=== PATIENT | female | born 1965 | race Caucasian/White ===

== ENCOUNTER 2017-03-21 19:09 | Observation (INO) | payer OTHER ==
[~2017-03-21] VITALS: Ht 165.1 cm; Wt 73.0 kg
[2017-03-21 19:12] VITALS: BP 178/82; PULSE 71; RESP 16; TEMP 98.3; O2SAT 99
[2017-03-21] MEDS ORDERED: LIPI10TA PO (19:29)
[2017-03-21] MEDS ORDERED: OMEP2.5S (19:29)
[2017-03-21] MEDS ORDERED: LOSA25TA PO (19:29)
--- NOTE | 2017-03-21 19:40 | PD ---
HPI Chief Complaint: Chest Pain Time Seen by Provider: 19:20 Travel History International Travel<30 days: No Contact w/Intl Traveler<30days: No Traveled to known affect area: No History of Present Illness HPI Patient is a 51-year-old female today while cooking her lunch she suddenly developed substernal chest pain that was bilateral central right as well as left it's been constant she took Maalox and Tums to relieve Prilosec to relieve but it did not relieve her pain. The pain continues in the ER. It is been constant for the last 3 hours. She has no nausea no vomiting no diaphoresis. The pain is a burning pressures kind of feeling. She has not seen Another doctor for this pain. In the ER she is nondiaphoretic nontoxic nonseptic appearing main complaint is a substernal midline chest pain burning pressure without relief from the meds she tried at home. She has a history of hypertension for which she takes losartan no other medications. No medical allergies PFSH Past Medical History High Cholesterol: Yes Diminished Hearing: No GERD: Yes Hypertension: Yes ?: Not Past Surgical History Abdominal Surgery: Yes (FISSURES) Eye Surgery: Yes (BILAT CATARACT SX) Social History Alcohol Use: No Tobacco Use: No Substance Use: No Allergies-Medications (Allergen,Severity, Reaction): Coded Allergies: No Known Allergies (Unverified , 03/21/17) Reported Meds & Prescriptions Reported Meds & Active Scripts Active Reported Prilosec (Omeprazole Magnesium) 2.5 Mg Pow Losartan (Losartan Potassium) 25 Mg Tab 25 Mg PO DAILY Lipitor (Atorvastatin Calcium) 10 Mg Tab 10 Mg PO HS Review of Systems Except as stated in HPI: all other systems reviewed are Neg Cardiovascular: Positive: Chest Pain or Discomfort Physical Exam Narrative GENERAL: no distress non toxic appearance SKIN: Warm and dry. HEAD: Atraumatic. Normocephalic. EYES: Pupils equal and round. No scleral icterus. No injection or drainage. ENT: No nasal bleeding or discharge. Mucous membranes pink and moist. NECK: Trachea midline. No JVD. CARDIOVASCULAR: Regular rate and rhythm. RESPIRATORY: No accessory muscle use. Clear to auscultation. Breath sounds equal bilaterally. GASTROINTESTINAL: Abdomen soft, non-tender, nondistended. Hepatic and splenic margins not palpable. MUSCULOSKELETAL: Extremities without clubbing, cyanosis, or edema. No obvious deformities. NEUROLOGICAL: Awake and alert. No obvious cranial nerve deficits. Motor grossly within normal limits. Five out of 5 muscle strength in the arms and legs. Normal speech. PSYCHIATRIC: Appropriate mood and affect; insight and judgment normal. Data Data Last Documented VS Orders Orders Complete Blood Count With Diff (03/21/17 19:26) Comprehensive Metabolic Panel (03/21/17 19:26) Ckmb (Isoenzyme) Profile (03/21/17 19:26) Troponin I (03/21/17:) Lipase (03/21/17:) Urinalysis - C+S If Indicated (03/21/17 19:26) Chest, Single Ap (03/21/17:26) Pantoprazole Inj (Protonix Inj) (03/21/17 19:45) Al-Mag Hy-Si 40-40-4 Mg/Ml Liq (Mag-Al P (03/21/17 19:45) Lidocaine 2% Viscous (Xylocaine 2% Visco (03/21/17 19:45) Electrocardiogram (03/21/17 ) CKMB (03/21/17 19:30) CKMB% (03/21/17 19:30) Admit Order (Ed Use Only) (03/21/17 22:07) Labs Laboratory Tests Test 03/21/17 19:30 03/21/17 20:05 White Blood Count 9.6 TH/MM3 Red Blood Count 4.67 MIL/MM3 Hemoglobin 14.0 GM/DL Hematocrit 42.5 % Mean Corpuscular Volume 91.0 FL Mean Corpuscular Hemoglobin 30.0 PG Mean Corpuscular Hemoglobin Concent 33.0 % Red Cell Distribution Width 13.6 % Platelet Count 191 TH/MM3 Mean Platelet Volume 10.2 FL Neutrophils (%) (Auto) 64.6 % Lymphocytes (%) (Auto) 25.0 % Monocytes (%) (Auto) 8.8 % Eosinophils (%) (Auto) 1.2 % Basophils (%) (Auto) 0.4 % Neutrophils # (Auto) 6.2 TH/MM3 Lymphocytes # (Auto) 2.4 TH/MM3 Monocytes # (Auto) 0.8 TH/MM3 Eosinophils # (Auto) 0.1 TH/MM3 Basophils # (Auto) 0.0 TH/MM3 CBC Comment DIFF FINAL Differential Comment Blood Urea Nitrogen 18 MG/DL Creatinine 0.82 MG/DL Random Glucose 87 MG/DL Total Protein 7.4 GM/DL Albumin 3.8 GM/DL Calcium Level 8.9 MG/DL Alkaline Phosphatase 75 U/L Aspartate Amino Transf (AST/SGOT) 20 U/L Alanine Aminotransferase (ALT/SGPT) 24 U/L Total Bilirubin 0.2 MG/DL Sodium Level 137 MEQ/L Potassium Level 3.7 MEQ/L Chloride Level 101 MEQ/L Carbon Dioxide Level 26.0 MEQ/L Anion Gap 10 MEQ/L Estimat Glomerular Filtration Rate 73 ML/MIN Total Creatine Kinase 216 U/L Creatine Kinase MB 1.0 NG/ML Creatine Kinase MB % 0.5 % Troponin I LESS THAN 0.02 NG/ML Lipase 89 U/L Urine Color LIGHT-YELLOW Urine Turbidity CLEAR Urine pH 6.0 Urine Specific [place] 1.003 Urine Protein NEG mg/dL Urine Glucose (UA) NEG mg/dL Urine Ketones NEG mg/dL Urine Occult Blood NEG Urine Nitrite NEG Urine Bilirubin NEG Urine Urobilinogen LESS THAN 2.0 MG/DL Urine Leukocyte Esterase NEG Urine WBC LESS THAN 1 /hpf Urine Squamous Epithelial Cells 3 /hpf Microscopic Urinalysis Comment CULT NOT INDICATED MDM Medical Decision Making Medical Screen Exam Complete: Yes Emergency Medical Condition: Yes Differential Diagnosis Gastritis versus GERD versus pancreatitis versus gallbladder disease versus myocardial ischemia pain versus lung pain and other. Narrative Course needs rule out of ACS with serial trop and stress test to R/O MA first ekg and trop neg and admit observation Diagnosis Primary Impression: Chest pain Qualified Codes: R07.9 - Chest pain, unspecified Admitting Information Admitting Physician Requests: Observation Condition: Corey Mckenzie MD Mar 21, 2017 19:40
[2017-03-21] MEDS ORDERED: LIDOCAINE VISCOUS 2% SOLN 15 ML UDC SWISH-SWAL ONE (19:45)
[2017-03-21] MEDS ORDERED: ALUMINUM/MAGNESIUM/SIMETH 30 ML CUP PO ONE (19:45)
[2017-03-21] MEDS ORDERED: PANTOPRAZOLE SODIUM 40 MG VIAL IV PUSH ONE (19:45)
[2017-03-21 20:15] LABS: AUTOMATED NEUTROPHIL # 6.2 TH/MM3 (1.8-7.7); BASOPHIL % 0.4 % (0.0-2.0); EOSINOPHIL # 0.1 TH/MM3 (0-0.4); EOSINOPHIL % 1.2 % (0.0-4.0); HEMATOCRIT 42.5 % (35.0-46.0); HEMO FLAGS DIFF FINAL; LYMPHOCYTE # 2.4 TH/MM3 (1.0-4.8); MONO % 8.8 % (0.0-8.0); NEUT % 64.6 % (16.0-70.0); PLATELET COUNT 191 TH/MM3 (150-450); RED BLOOD COUNT 4.67 MIL/MM3 (4.00-5.30); RED CELL DISTRIBUTION WIDTH 13.6 % (11.6-17.2); WHITE BLOOD COUNT 9.6 TH/MM3 (4.0-11.0)
[2017-03-21 20:16] VITALS: BP 150/82; PULSE 77; RESP 18; O2SAT 99
[2017-03-21 20:18] LABS: BLOOD, URINE NEG (NEG); GLUCOSE,URINE NEG (NEG); KETONE, URINE NEG (NEG); NITRITE,URINE NEG (NEG); SQUAMOUS EPITHELIAL CELL URINE 3 /hpf (0-5); URINE COLOR LIGHT-YELLOW (YELLW/STRAW)
--- NOTE | 2017-03-21 20:25 | RADRPT ---
EXAM DATE/TIME: 03/21/2017 20:09 [place] COMPARISON: No previous studies available for comparison. INDICATIONS : Left side chest pain. MEDICAL HISTORY : None. SURGICAL HISTORY : None. ENCOUNTER: Initial ACUITY: 1 day PAIN SCORE: 4/10 LOCATION: Left chest FINDINGS: A single view of the chest demonstrates the lungs to be symmetrically aerated without evidence of mas s, infiltrate or effusion. The cardiomediastinal contours are unremarkable. Osseous structures are intact. CONCLUSION: No acute disease. Colten Guan MD on March 21, 2017 at 20:23 Board Certified Radiologist. This report was verified electronically.
[2017-03-21 20:30] LABS: COMMENT (UR) CULT NOT INDICATED; CULTURE IF INDICATED CULT NOT INDICATED
[2017-03-21 20:43] LABS: ANION GAP 10 MEQ/L (5-15); AST (GOT) 20 U/L (15-37); BLOOD UREA NITROGEN 18 MG/DL (7-18); CHLORIDE 101 MEQ/L (98-107); GLOMERULAR FILTRATION RATE 73 ML/MIN (>89); POTASSIUM 3.7 MEQ/L (3.5-5.1); SODIUM (NA) 137 MEQ/L (136-145)
[2017-03-21 20:44] LABS: ALT (GPT) 24 U/L (10-53)
[2017-03-21 20:48] LABS: ALKALINE PHOSPHATASE 75 U/L (45-117); CREATINE KINASE 216 U/L (26-192); TOTAL BILIRUBIN ADULT 0.2 MG/DL (0.2-1.0)
[2017-03-21] MEDS ORDERED: SODIUM CHLORIDE 0.9% FLUSH 10 ML FLUSH IV FLUSH PRN (22:15)
[2017-03-21] MEDS ORDERED: ONDANSETRON HCL 4 MG/2 ML VIAL IV PUSH PRN (22:15)
[2017-03-21] MEDS ORDERED: NITROGLYCERIN 2% OINT 1 GM PACKET TOPICAL ONE (22:30)
[2017-03-21] MEDS ORDERED: ASPIRIN 81 MG CHEW TAB CHEW ONE (22:30)
[2017-03-21 23:22] VITALS: BP 123/84; PULSE 77; RESP 17; TEMP 97.8; O2SAT 98
[2017-03-21 23:31] LABS: CREATINE KINASE 190 U/L (26-192)
[2017-03-21 23:33] VITALS: PULSE 77
[2017-03-21 23:44] LABS: CKMB 1.1 NG/ML (0.5-3.6)
[2017-03-22 02:34] LABS: CREATINE KINASE 166 U/L (26-192)
[2017-03-22 02:47] LABS: CKMB 1.1 NG/ML (0.5-3.6)
[2017-03-22] MEDS: NITROGLYCERIN 2% OINT 1 GM PACKET TOP SCH ×2 (03:26→06:00)
[2017-03-22 04:05] VITALS: PULSE 74
[2017-03-22 04:34] VITALS: BP 109/74; PULSE 72; RESP 16; TEMP 97.8; O2SAT 96
[2017-03-22 07:10] VITALS: PULSE 73
[2017-03-22 08:02] VITALS: BP 117/83; PULSE 85; RESP 18; TEMP 98.1; O2SAT 97
--- NOTE | 2017-03-22 08:50 | HHI.HP ---
[facility] Primary Care Physician Ildefonso Mccormick D.O. Chief Complaint CHEST PAIN History of Present Illness This is a 81-year-old female that presents to ED for evaluation of chest discomfort. She states it began yesterday around 6:00 in the morning while preparing her 's lunch. States symptoms lasted all day long. 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 Tried taking Maalox and Tums and Prilosec but did not really help. She tried drinking a soda thinking it may help her burp and the symptoms would improve however they did not. He describes as a tightness. Points to the center of her chest. Femoral nothing to improve the symptoms were to worsen them. No shortness of breath, nausea, or diaphoresis. She's had similar episode a couple months ago but they last for just a couple seconds. Denies recent illness. Denies fevers or chills. Review of Systems General: Patient denies fevers, chills recent, and recent travel HEENT: Patient denies headache, sore throat, difficulty swallowing. Cardiovascular: Has the chest discomfort as mentioned above. Denies sensation of heart beating rapidly or irregularly. No syncope. Denies diaphoresis. Respiratory: Denies shortness of breath or inspirational chest discomfort. Denies coughing wheezing or hemoptysis. GI: Patient denies nausea, vomiting, diarrhea, abdominal pain, bloody stools. Musculoskeletal: Patient denies joint pain or edema. Denies calf pain or edema. Neurovascular: Patient denies numbness, tingling, weakness in extremities. Denies headache. Endocrine: Denies polyuria and polydipsia. Hematologic: Denies easy bruising. Skin: Denies rash or itching. Past Family Social History Allergies: Coded Allergies: No Known Allergies (Unverified , 03/21/17) Past Medical History Hypertension, hyperlipidemia, GERD. Denies diabetes and known CAD. Past Surgical History Noncontributory. Reported Medications Reported Meds & Active Scripts Active Reported Prilosec (Omeprazole Magnesium) 2.5 Mg Pow Losartan (Losartan Potassium) 25 Mg Tab 25 Mg PO DAILY Lipitor (Atorvastatin Calcium) 10 Mg Tab 10 Mg PO HS Active Ordered Medications Current Medications Medications (Trade) Dose Ordered Sig/Tab Route Start Time Stop Time Status Last Admin (NS Flush) 2 ml UNSCH PRN IV FLUSH 03/21/17 22:15 (NS Flush) 2 ml BID IV FLUSH 03/22/17 09:00 (Zofran Inj) 4 mg Q6H PRN IV PUSH 03/21/17 22:15 (Pepcid) 20 mg BID PO 03/22/17 09:00 (Nitroglycerin 2% Oint) 1 inch Q6HR TOP 03/22/17 00:00 03/22/17 03:26 Family History States her father had a CABG in his early 60s. Social History Nonsmoker. Denies alcohol or illicit drugs. Physical Exam Vital Signs Vital Signs Date Time Temp Pulse Resp B/P (MAP) Pulse Ox O2 Delivery O2 Flow Rate FiO2 03/22/17 08:02 98.1 85 18 117/83 (94) 97 03/22/17 07:10 73 03/22/17 04:34 97.8 72 16 109/74 (86) 96 03/22/17 04:05 74 03/21/17 23:33 77 03/21/17 23:22 97.8 77 17 123/84 (97) 98 03/21/17 23:03 03/21/17 20:16 77 18 150/82 (104) 99 Room Air 03/21/17 19:22 100 Room Air 03/21/17 19:12 98.3 71 16 178/82 (114) 99 Room Air Physical Exam GENERAL: This is a well-nourished, well-developed patient, in no apparent distress. Patient speaks in clear complete sentences. Patient is pleasant. HEENT: Head is atraumatic and normocephalic. Neck is supple without lymphadenopathy and trachea is midline. No JVD or carotid bruits. CARDIOVASCULAR: Regular rate and rhythm without murmurs, gallops, or rubs. RESPIRATORY: Clear to auscultation. Breath sounds equal bilaterally. No wheezes , rales, or rhonchi. Chest wall is nontender. No use of accessory muscles. GASTROINTESTINAL: Abdomen is nontender, nondistended. Abdomen soft. No obvious pulsatile mass or bruit. No CVA tenderness. Strong femoral pulses bilaterally. Normal bowel sounds in all quadrants. MUSCULOSKELETAL: Patient is moving upper and lower extremities freely. No calf tenderness or edema, no Homans sign. Strong pulses in upper and lower extremities. NEUROLOGICAL: Patient is alert and oriented. Cranial nerves 2-12 are grossly intact. No focal deficits and speech is clear. SKIN: No rash and turgor is normal. Laboratory Laboratory Tests Test 03/21/17 19:30 03/21/17 20:05 03/21/17 23:00 03/22/17 01:50 White Blood Count 9.6 Red Blood Count 4.67 Hemoglobin 14.0 Hematocrit 42.5 Mean Corpuscular Volume 91.0 Mean Corpuscular Hemoglobin 30.0 Mean Corpuscular Hemoglobin Concent 33.0 Red Cell Distribution Width 13.6 Platelet Count 191 Mean Platelet Volume 10.2 Neutrophils (%) (Auto) 64.6 Lymphocytes (%) (Auto) 25.0 Monocytes (%) (Auto) 8.8 Eosinophils (%) (Auto) 1.2 Basophils (%) (Auto) 0.4 Neutrophils # (Auto) 6.2 Lymphocytes # (Auto) 2.4 Monocytes # (Auto) 0.8 Eosinophils # (Auto) 0.1 Basophils # (Auto) 0.0 CBC Comment DIFF FINAL Differential Comment Blood Urea Nitrogen 18 Creatinine 0.82 Random Glucose 87 Total Protein 7.4 Albumin 3.8 Calcium Level 8.9 Alkaline Phosphatase 75 Aspartate Amino Transf (AST/SGOT) 20 Alanine Aminotransferase (ALT/SGPT) 24 Total Bilirubin 0.2 Sodium Level 137 Potassium Level 3.7 Chloride Level 101 Carbon Dioxide Level 26.0 Anion Gap 10 Estimat Glomerular Filtration Rate 73 Total Creatine Kinase 216 190 166 Creatine Kinase MB 1.0 1.1 1.1 Creatine Kinase MB % 0.5 Troponin I LESS THAN 0.02 LESS THAN 0.02 LESS THAN 0.02 Lipase 89 Urine Color LIGHT-YELLOW Urine Turbidity CLEAR Urine pH 6.0 Urine Specific [place] 1.003 Urine Protein NEG Urine Glucose (UA) NEG Urine Ketones NEG Urine Occult Blood NEG Urine Nitrite NEG Urine Bilirubin NEG Urine Urobilinogen LESS THAN 2.0 Urine Leukocyte Esterase NEG Urine WBC LESS THAN 1 Urine Squamous Epithelial Cells 3 Microscopic Urinalysis Comment CULT NOT INDICATED Result Diagram: 03/21/17192903/21/171929 Imaging Last 48 hours Impressions Chest X-Ray 03/21/171925 Signed Impressions: Service Date/Time: Tuesday, March 21, 2017 20:09 - CONCLUSION: No acute disease. Colten Guan MD Course EKGs have sinus rhythm without significant ST segment depressions or elevations. Caprini VTE Risk Assessment Caprini VTE Risk Assessment: No/Low Risk (score <= 1) Caprini Risk Assessment Model Point Value = 1 Point Value = 2 Point Value = 3 Point Value = 5 Age 41-60 Minor surgery BMI > 25 kg/m2 Swollen legs Varicose veins or History of unexplained or recurrent spontaneous Oral contraceptives or hormone replacement Sepsis (< 1 month) Serious lung disease, including pneumonia (< 1 month) Abnormal pulmonary function Acute myocardial infarction Congestive heart failure (< 1 month) History of inflammatory bowel disease Medical patient at bed rest Age 61-74 Arthroscopic surgery Major open surgery (> 45 min) Laparoscopic surgery (> 45 min) Malignancy Confined to bed (> 72 hours) Immobilizing plaster cast Central venous access Age >= 75 History of VTE Family history of VTE Factor V Leiden Prothrombin [id number] Lupus anticoagulant Anticardiolipin antibodies Elevated serum homocysteine Heparin-induced thrombocytopenia Other congenital or acquired thrombophilia Stroke (< 1 month) Elective arthroplasty Hip, pelvis, or leg fracture Acute spinal cord injury (< 1 month) Prophylaxis Regimen Total Risk Factor Score Risk Level Prophylaxis Regimen 0-1 Low Early ambulation 2 Moderate Order ONE of the following: *Sequential Compression Device (SCD) *Heparin 5000 units SQ BID 3-4 Higher Order ONE of the following medications: *Heparin 5000 units SQ TID *Enoxaparin/Lovenox 40 mg SQ daily (WT < 150 kg, CrCl > 30 mL/min) *Enoxaparin/Lovenox 30 mg SQ daily (WT < 150 kg, CrCl > 10-29 mL/min) *Enoxaparin/Lovenox 30 mg SQ BID (WT < 150 kg, CrCl > 30 mL/min) AND/OR *Sequential Compression Device (SCD) 5 or more Highest Order ONE of the following medications: *Heparin 5000 units SQ TID (Preferred with Epidurals) *Enoxaparin/Lovenox 40 mg SQ daily (WT < 150 kg, CrCl > 30 mL/min) *Enoxaparin/Lovenox 30 mg SQ daily (WT < 150 kg, CrCl > 10-29 mL/min) *Enoxaparin/Lovenox 30 mg SQ BID (WT < 150 kg, CrCl > 30 mL/min) AND *Sequential Compression Device (SCD) Assessment and Plan Assessment and Plan * Chest pain: Her symptoms are atypical. However patient has risk factors for CAD. She was seen by Dr. Pasha Menchaca of cardiology in the [facility]. She will undergo a Damian protocol ETT and if nonischemic will be discharged home with instructions to follow-up with her PCP. Return to ED for interval issues. * Hypertension: Continue current medication. * Hyperlipidemia: Continue current medication. * GERD: Continue current medication. Patient is stable at this time. She is agreeable to this plan. Alex Mosquera Mar 22, 2017 08:50
[2017-03-22] MEDS ORDERED: LOSARTAN 25 MG TAB PO SCH (09:00)
[2017-03-22] MEDS ORDERED: SODIUM CHLORIDE 0.9% FLUSH 10 ML FLUSH IV FLUSH SCH (09:00)
[2017-03-22] MEDS ORDERED: FAMOTIDINE 20 MG TAB PO SCH (09:00)
--- NOTE | 2017-03-22 09:45 | HHI.DCPOC ---
Discharge Care Plan Diagnosis: (1) Chest pain (2) Hypertension (3) Hyperlipidemia Goals to Promote Your Health * To prevent worsening of your condition and complications * To maintain your health at the optimal level Directions to Meet Your Goals Take your medications as prescribed Follow your dietary instruction Follow activity as directed Keep your appointments as scheduled Take your immunizations and boosters as scheduled If your symptoms worsen call your PCP, if no PCP go to Urgent Care Center or Emergency Room Smoking is Dangerous to Your Health. Avoid second hand smoke Call the 24-hour hour crisis hotline for domestic abuse at Alex Mosquera Mar 22, 2017 09:45
[2017-03-22] MEDS ORDERED: ATORVASTATIN 10 MG TAB PO SCH (21:00)
--- NOTE | 2017-03-23 08:49 | EKG ---
Date Performed: 03/22/2017 Time Performed: 02:10:00 PTAGE: 51 years EKG: Sinus rhythm NORMAL ECG PREVIOUS TRACING : 03/21/2017 22.59 Since previous tracing, no significant change noted DOCTOR: Pasha Menchaca Interpretating Date/Time 03/23/2017 08:49:12
--- NOTE | 2017-03-23 08:51 | EKG ---
Date Performed: 03/21/2017 Time Performed: 22:59:35 PTAGE: 51 years EKG: Sinus rhythm WITH OCCASIONAL SUPRAVENTRICULAR PREMATURE COMPLEXES LOW QRS VOLTAGE IN PRECORDIAL LEADS BORDERLINE ECG PREVIOUS TRACING : 03/21/2017 19.38 Since previous tracing, no significant change noted DOCTOR: Pasha Menchaca Interpretating Date/Time 03/23/2017 08:49:35
--- NOTE | 2017-03-23 08:52 | EKG ---
Date Performed: 03/21/2017 Time Performed: 19:38:59 PTAGE: 51 years EKG: SINUS BRADYCARDIA BORDERLINE ECG INTERPRETATION BASED ON A DEFAULT AGE OF 40 YEARS PREVIOUS TRACING : 07/25/2001 16.48 Since previous tracing, no significant change noted DOCTOR: Pasha Menchaca Interpretating Date/Time 03/23/2017 08:50:36
--- NOTE | 2017-03-23 08:59 | TR ---
Date Performed: 03/22/2017 Time Performed: 09:14:45 DOCTOR: Pasha Menchaca DRUG LIST: CLINICAL HISTORY: REASON FOR TEST: Chest pain REASON FOR ENDING: OBSERVATION: CONCLUSION: MALCOM PROTOCOL. NO CP. TEST STOPPED AFTER EXCEEDING GOAL HR SECONDARY TO SOB AND LEG FATIGUE.Maximum MC=896 Maximum EB=217/86 Total Exercise Time=5:00 % Max HR [id number]=596.0% COMMENTS: Patient exercised using the Malcom protocol. No electrocardiographic changes were seen to suggest ischemia. Hemodynamic response to exercise was normal. No significant arrhythmia was prese nt.
== END 2017-03-22 11:00 | disposition home or self-care (01) ==
LOC: NEPC 19:09 → NEDA 22:08 → NEPFCDU 23:13
PROVIDERS: ADMIT Internal Medicine Cardiovascular Disease; ATTEND Internal Medicine Cardiovascular Disease
DX: R07.89 Other chest pain (principal); I10 Essential (primary) hypertension; E78.00 Pure hypercholesterolemia, unspecified; K21.9 Gastro-esophageal reflux disease without esophagitis
CPT/HCPCS: 71010; 80053; 81001; 82550; 82552; 83690; 84484; 85025; 93005; 93017; 96374; 99285; C9113; G0378